=== PATIENT | male | born 1955 | race Caucasian/White ===

== ENCOUNTER 2018-01-08 18:52 | Inpatient (IN) | payer OTHER ==
[~2018-01-08] VITALS: Ht 177.8 cm; Wt 78.5 kg
[2018-01-08] MEDS ORDERED: PROAIR HFA INH8.5 GM (19:28)
[2018-01-08] MEDS ORDERED: ALBUTEROL0.63 MG/3 (19:28)
[2018-01-08] MEDS ORDERED: MONTELUKAST SOD10 MG PO (19:28)
[2018-01-08] MEDS ORDERED: TAMIFLU75 MG PO (19:28)
[2018-01-08] MEDS ORDERED: PROTONIX40 MG PO (19:28)
[2018-01-08] MEDS ORDERED: MORPHINE SULFATE 2 MG/ML SYR IV STA (19:36)
[2018-01-08] MEDS ORDERED: ONDANSETRON HCL INJ 2 MG/ML VIAL IV STA (19:36)
[2018-01-08] MEDS ORDERED: PANTOPRAZOLE 40 MG 10ML VIAL IV STA (19:36)
[2018-01-08] MEDS ORDERED: MORPHINE SULFATE 2 MG/ML SYR IV PRN (20:15)
[2018-01-08] MEDS ORDERED: IPRATROPIUM BROMIDE 0.02% 2.5 ML NEB NEB PRN (20:15)
[2018-01-08] MEDS ORDERED: ONDANSETRON HCL INJ 2 MG/ML VIAL IV PRN (20:15)
[2018-01-08] MEDS ORDERED: LEVALBUTEROL HCL SOLN NEBU 1.25 MG/3 ML NEB INH PRN (20:15)
[2018-01-08] MEDS: SODIUM CHLORIDE 0.9% 1000ML 1,000 ML IV SCH (20:45)
[2018-01-08] MEDS ORDERED: DEXTROSE 5%/0.45% SOD CHL 1,000 ML IV ONE (20:45)
[2018-01-09] VITALS (7 sets, daily range): BP systolic 113–139; BP diastolic 60–74
[2018-01-09 01:10] LABS: ALANINE AMINOTRANSFERASE 27 IU/L (0-55); ALBUMIN 3.3 g/dL (3.5-5.0); ALBUMIN/GLOBULIN RATIO 1.1 (0.8-2.0); ALKALINE PHOSPHATASE 52 IU/L (40-150); BLOOD UREA NITROGEN 10 mg/dL (7-26); BUN/CREATININE RATIO 12 (6-25); CALCIUM 8.2 mg/dL (8.4-10.2); CARBON DIOXIDE 23 mmol/L (22-29); CREATININE, SERUM 0.83 mg/dL (0.72-1.25); EST GLOMERULAR FILTRATION RATE > 60 ML/MIN (60-); GLUCOSE 104 mg/dL (74-118); LIPASE 25 U/L (8-78)
[2018-01-09 01:37] LABS: ANION GAP 12.6 mmol/L (8-16); CHLORIDE 100 mmol/L (98-107); POTASSIUM 4.6 mmol/L (3.5-5.1); SODIUM 131 mmol/L (136-145)
--- NOTE | 2018-01-09 02:22 | Diagnostic Imaging Report ---
EXAM: CT ABDOMEN/PELVIS W DATE: 01/09/2018 11:09 PM INDICATION: \S\possible esophageal mass, dysphagia - oral and IV contrast \[id number] \S\0137 \S\Y COMPARISON: None TECHNIQUE: The abdomen and pelvis were scanned using a multidetector helical scanner. Coronal and sagittal reformations were obtained. Routine protocol performed. IV Contrast: 100 ml Isovue 370 FINDINGS: LOWER THORAX: No consolidations. Nonspecific 1.4 cm low paraesophageal node. LIVER/BILIARY: No masses. No ductal dilatation. GALLBLADDER: Unremarkable SPLEEN: Unremarkable PANCREAS: Unremarkable ADRENALS: No nodules KIDNEYS: Symmetric perfusion. No enhancing masses. No hydronephrosis. GI TRACT: No wall thickening or evidence of obstruction. Diverticulosis. Appendix is visualized. VESSELS: Mild atherosclerotic changes. PERITONEUM/RETROPERITONEUM: No free air or fluid LYMPH NODES: No lymphadenopathy REPRODUCTIVE ORGANS/BLADDER: Unremarkable SOFT TISSUES: Unremarkable BONES: No suspicious bone lesions. IMPRESSION: 1. No acute abnormality. 2. Nonspecific 1.4 cm low paraesophageal node, which may be reactive. If there is concern for esophageal mass, consider nonemergent follow up esophagram or endoscopy. Signed by: Dr Xiao Pacheco MD on 01/09/2018 2:18 AM
[2018-01-09] MEDS ORDERED: DEXTROSE 5%/0.45% SOD CHL 1,000 ML IV ONE (02:45)
[2018-01-09] MEDS: SODIUM CHLORIDE 0.9% 1000ML 1,000 ML IV SCH ×2 (03:03→17:36)
[2018-01-09] MEDS ORDERED: IOPAMIDOL 370 MG/ML 200 ML INFUS..BTL INJ ONE (03:35)
[2018-01-09] MEDS ORDERED: SODIUM CHLORIDE 0.9% 50ML 50 ML ONE (03:35)
[2018-01-09 08:39] LABS: BASOPHILS % 0.4 % (0.0-1.0); EOSINOPHILS # (AUTO) 0.1 (0.0-0.4); EOSINOPHILS % 1.2 % (0.0-6.0); HEMATOCRIT 35.7 % (38.2-49.6); HEMOGLOBIN 12.3 g/dL (14.0-18.0); LYMPHOCYTES # (AUTO) 1.4 (1.0-3.2); LYMPHOCYTES % 28.7 % (18.0-39.1); MEAN CORPUSCULAR HEMOGLOBIN 29.4 pg (28-32); MEAN CORPUSCULAR HGB CONC 34.5 g/dL (31-35); MEAN CORPUSCULAR VOLUME 85.4 fL (81-99); MONOCYTES # (AUTO) 0.6 (0.2-0.8); MONOCYTES % 11.8 % (4.4-11.3); NEUTROPHILS # (AUTO) 2.8 (2.1-6.9); NEUTROPHILS % 57.7 % (38.7-80.0); PLATELET COUNT 218 x10e3/uL (140-360); RED BLOOD COUNT 4.18 x10e6/uL (4.3-5.7); RED CELL DISTRIBUTION WIDTH 12.2 % (11.7-14.4)
[2018-01-09] MEDS: MONTELUKAST SODIUM 10 MG TAB PO SCH (08:39)
[2018-01-09] MEDS ORDERED: PANTOPRAZOLE 40 MG 10ML VIAL IV SCH (09:00)
--- NOTE | 2018-01-09 09:01 | Consultation ---
DATE OF CONSULTATION: January 09, 2018 This is a 62 year old who has a history of hypertension who presented to the hospital because of abdominal pain. Mainly it is in the epigastric area along with fever. He does not have any nausea or vomiting. He does have a little bit of diarrhea. His workup so far showed that he had a ultrasound, which was essentially unremarkable. CT scan shows a 1.4 cm low paraesophageal node, which may be reactive and otherwise is unremarkable. His labs at the ER shows normal CBC, as well as CMP. His other medical problems are significant for history of hypertension. ALLERGIES: NONE. SOCIAL HISTORY: There is no alcohol use. FAMILY HISTORY: Noncontributory. REVIEW OF SYSTEMS: Denies any chest pain. At this point, denies any shortness of breath. Denies any dysphagia or odynophagia. There is no dysuria, hematuria or any kind of syncopal episode. PHYSICAL EXAMINATION GENERAL: Awake, alert and appears to be stable. VITAL SIGNS: Afebrile. HEENT: Normocephalic and atraumatic. Sclerae are anicteric. NECK: Supple. HEART: Sounds are regular. LUNGS: Clear. ABDOMEN: Soft. There is no tenderness at this point. There is no rebound or mass. EXTREMITIES: Shows no clubbing. LAB VALUES: This morning sodium 131. Liver enzymes again are normal. IMPRESSION 1. Abdominal pain: So far, workup is unremarkable. Possibility of peptic ulcer disease. 2. Hypertension. RECOMMENDATIONS: Keep n.p.o. for now. Will proceed with EGD for further evaluation today. Follow labs. Job#: [id number] RI cc:DO DORA TREVINO MD
[2018-01-09] MEDS ORDERED: SIMETHICONE 40 MG/0.6 ML BTL ONE (09:14)
--- NOTE | 2018-01-09 09:48 | Operative Report ---
DATE OF PROCEDURE: January 09, 2018 PROCEDURE: Upper endoscopy. ANESTHESIA: IV general. PREOPERATIVE DIAGNOSIS: Abdominal pain and fever. POSTOPERATIVE DIAGNOSES 1. Esophageal ulcer. 2. Esophagitis. 3. Hiatal hernia. 4. Gastritis. PROCEDURE IN DETAIL: Discussed with the patient prior to the procedure. The patient understands the risk of bleeding, infection, and perforation, as well as medication reaction. The patient was secured. After the patient was resting comfortably, an Olympus gastroscope was introduced into the mouth and into the stomach, and the esophagus showed evidence of esophagitis. The stomach and the showed evidence of hiatal hernia, as well as gastritis. Multiple biopsies were taken from the stomach, as well as the esophagus. The duodenum appeared to be normal. The patient is without any problems. Recommendation is follow up pathology results. Will add Carafate along with PPI for now. Job#: [id number] RI cc:DO DORA ALBA MD
[2018-01-09] MEDS: ALBUTEROL SULF 0.083% NEB SOLN 3 ML NEB NEB SCH ×2 (12:00→20:45)
[2018-01-09] MEDS: SUCRALFATE 1 GM TAB PO SCH ×3 (12:41→21:21)
[2018-01-09] MEDS ORDERED: LIDOCAINE VISC 2% SOLN 15 ML UDC PO ONE (16:30)
--- NOTE | 2018-01-09 16:33 | History and Physical ---
PRIMARY CARE PROVIDER: Dr. Jeff Allen. CHIEF COMPLAINT: Dysphagia and weight loss. HISTORY OF PRESENT ILLNESS: Mr. Garcia is a 62-year-old gentleman who complains of painful swallowing and dysphagia for the last couple of weeks. The patient does have a history of acid reflux and has been started on a stronger medicine by his PCP with no relief. REVIEW OF SYSTEMS: He denies fevers or chills. He has had some subjective weight loss over the last couple of weeks. He denies sinus congestion. He has fever blisters on his lower lip. He denies sore throat. He denies chest pain or palpitations. Denies shortness of breath, wheezing or cough. Does have a history of asthma. He is having dysphagia, painful swallowing and difficulty swallowing, but no nausea or vomiting. Some epigastric discomfort. No diarrhea or melena. He denies dysuria or flank pain. Denies rash or pruritus. Denies bleeding or bruising. Denies joint pain or swelling. Denies headache, vertigo or loss of consciousness. Denies depression, agitation, homicidal or suicidal ideation. PAST MEDICAL HISTORY: Significant for hypertension and asthma. MEDICATIONS: Albuterol inhaler and nebulizer treatments. Protonix 40 mg twice a day before meals and Singulair 10 mg daily. PAST SURGICAL HISTORY: He also has a history of minor surgery on a finger and on his foot. ALLERGIES: NO KNOWN DRUG ALLERGIES. FAMILY HISTORY: Remarkable for hypertension. SOCIAL HISTORY: The patient is . [place]ian is his primary language. He does smoke, drink or use illegal drugs. He is generally independently functioning. PHYSICAL EXAM: PSYCHIATRIC: He is alert and oriented times 3 with normal mood and affect. CONSTITUTIONAL: He has a normal body habitus. Is in no acute distress. VITAL SIGNS: Blood pressure 117/60. Pulse 60 and regular. Respiratory rate 20. O2 sat 97%. Temperature 97.9. HEENT: Head is atraumatic. His eyes are anicteric with clear conjunctivae. Ears nares are without erythema or discharge. Oropharynx is clear. NECK: Is supple with no mass or thyromegaly. LYMPHATIC SYSTEM: He has no palpable cervical, axillary or inguinal adenopathy. CARDIOVASCULAR: His heart has a regular rate and rhythm without murmur or extra heart sounds. He has no carotid bruit. Has no peripheral edema. Weak dorsal pedal pulses. RESPIRATORY: Clear to auscultation and percussion with normal respiratory effort. GASTROINTESTINAL: Abdomen is soft without organomegaly, masses or tenderness. Normal bowel sounds present. CUTANEOUS: His skin is warm and dry to touch with no rash or skin breakdown. MUSCULOSKELETAL: Joints are in normal alignment without erythema or swelling. Has no calf tenderness. NEUROLOGIC: Exam is nonfocal with intact cranial nerves and no motor or sensory deficits. DIAGNOSTIC STUDIES: CT scan of the abdomen shows no acute disease. Does show 1.4 cm low paraesophageal lymph node that appears reactive. He is status post upper endoscopy done by the GI service that showed reflux esophagitis and some unusual looking ulcerations that had a herpetic appearance. CBC shows a white count of 4.85 with a normal differential. Hemoglobin 12.3, hematocrit 35.7, platelet count 218,000. His chemistry shows normal electrolytes. CO2 23. Creatinine 0.83. BUN 10 for normal GFR. Calcium 8.2. Glucose 104. Amylase 25. Lipase 24. Transaminases, bilirubin and alkaline phos all normal. IMPRESSION AND PLAN 1. Dysphagia. GI has been consulted. He is status post EGD that showed GERD and some unusual ulcerations, possibly hepatic in nature. The patient was initially started on IV Protonix which was then switched to p.o. Protonix twice a day before meals with Carafate 1 gram before meals, added by GI. Will also add viscous lidocaine for the discomfort and Acyclovir for possible herpetic lesions. 2. Hypertension. The patient is normotensive at present. Will monitor and hold his medications. 3. Asthma. He is currently asymptomatic. Will use as needed nebulizer treatments. 4. For prophylaxis the patient is on SCDs for DVT prophylaxis and Protonix for GI prophylaxis. Job#: [id number]
[2018-01-09] MEDS ORDERED: PROPOFOL IV EMULSION 10 MG/ML 20 ML VIAL ONE (17:28)
[2018-01-09] MEDS: ACYCLOVIR 200 MG CAP PO SCH ×2 (17:36→18:00)
[2018-01-09] MEDS: PANTOPRAZOLE SOD 40 MG TABEC PO SCH (17:36)
[2018-01-09] MEDS ORDERED: FENTANYL CITRATE/PF 100MCG/2 ML INJ ONE (18:14)
[2018-01-09] MEDS ORDERED: MIDAZOLAM HCL 2 MG/2 ML VIAL ONE (18:14)
[2018-01-10] VITALS: BP 128/64
[2018-01-10] MEDS: ACYCLOVIR 200 MG CAP PO SCH ×3 (00:50→12:06)
[2018-01-10 01:33] VITALS: BP 119/60
[2018-01-10] MEDS: SODIUM CHLORIDE 0.9% 1000ML 1,000 ML IV SCH ×2 (02:00→11:45)
[2018-01-10 04:00] VITALS: BP 143/65
[2018-01-10] MEDS: ALBUTEROL SULF 0.083% NEB SOLN 3 ML NEB NEB SCH ×2 (06:45→12:55)
[2018-01-10 07:04] LABS: BASOPHILS % 0.4 % (0.0-1.0); EOSINOPHILS # (AUTO) 0.1 (0.0-0.4); EOSINOPHILS % 2.2 % (0.0-6.0); HEMATOCRIT 35.9 % (38.2-49.6); HEMOGLOBIN 12.5 g/dL (14.0-18.0); LYMPHOCYTES # (AUTO) 1.5 (1.0-3.2); MEAN CORPUSCULAR HGB CONC 34.8 g/dL (31-35); MEAN CORPUSCULAR VOLUME 86.1 fL (81-99); MONOCYTES # (AUTO) 0.6 (0.2-0.8); MONOCYTES % 10.3 % (4.4-11.3); NEUTROPHILS # (AUTO) 3.2 (2.1-6.9); NEUTROPHILS % 58.5 % (38.7-80.0); PLATELET COUNT 250 x10e3/uL (140-360); RED BLOOD COUNT 4.17 x10e6/uL (4.3-5.7); RED CELL DISTRIBUTION WIDTH 12.3 % (11.7-14.4)
[2018-01-10] MEDS ORDERED: PANTOPRAZOLE SOD 40 MG TABEC PO SCH (07:30)
[2018-01-10 07:36] LABS: ANION GAP 10.4 mmol/L (8-16); BLOOD UREA NITROGEN 6 mg/dL (7-26); BUN/CREATININE RATIO 8 (6-25); CALCIUM 8.5 mg/dL (8.4-10.2); CARBON DIOXIDE 29 mmol/L (22-29); CHLORIDE 106 mmol/L (98-107); CREATININE, SERUM 0.78 mg/dL (0.72-1.25); EST GLOMERULAR FILTRATION RATE > 60 ML/MIN (60-); GLUCOSE 105 mg/dL (74-118); POTASSIUM 4.4 mmol/L (3.5-5.1); SODIUM 141 mmol/L (136-145)
[2018-01-10 07:39] LABS: THYROID STIMULATING HORMONE 0.477 uIU/mL (0.350-4.940)
[2018-01-10 07:45] VITALS: BP 134/70
[2018-01-10 08:00] VITALS: BP 134/70
[2018-01-10] MEDS: MONTELUKAST SODIUM 10 MG TAB PO SCH (08:21)
[2018-01-10] MEDS: PANTOPRAZOLE SOD 40 MG TABEC PO SCH (08:21)
[2018-01-10] MEDS: SUCRALFATE 1 GM TAB PO SCH ×2 (08:21→12:06)
[2018-01-10 09:53] LABS: EOSINOPHILS % (MANUAL) 5 % (0-7); LYMPHOCYTES % (MANUAL) 35 % (19-48); MONOCYTES % (MANUAL) 3 % (3.4-9.0); NEUTROPHILS % (MANUAL) 53 % (40-74)
[2018-01-10 09:54] LABS: ANISOCYTOSIS SLIGHT; HYPOCHROMASIA SLIGHT; PLATELET MORPHOLOGY COMMENT NORMAL; POIKILOCYTOSIS SLIGHT; RBC MORPHOLOGY COMMENT NORMAL
[2018-01-10 16:00] VITALS: BP 135/65
[2018-01-10] MEDS ORDERED: CARAFATE1 GM PO (17:10)
[2018-01-10] MEDS ORDERED: ACYCLOVIR200 MG PO (17:10)
--- NOTE | 2018-01-11 07:07 | Discharge Summary ---
PCP: Dr. Jeff Allen CONSULTING PHYSICIAN: Dr. Henry with gastroenterology. PERTINENT HISTORY AND PHYSICAL FINDINGS: Chief complaint was dysphagia and weight loss. Mr. Garcia is a 62-year-old gentleman who complained of painful swallowing and dysphagia for 2 weeks prior to admission to [facility]. The patient does have a history of acid reflux, and has been started on a stronger medicine by his PCP with no relief. His review of systems did include dysphagia, painful swallowing, difficulty swallowing without nausea or vomiting. Some epigastric discomfort. No diarrhea or melena. No dysuria or flank pain. PAST MEDICAL HISTORY: Significant for hypertension and asthma. ALLERGIES: NO KNOWN ALLERGIES. ADMITTING DIAGNOSES 1. Dysphagia. 2. Hypertension. 3. Asthma. DISCHARGE DIAGNOSES 1. Dysphagia with painful swallowing. 2. Gastroesophageal reflux disease and unusual ulcerations. 3. Hypertension. 4. Asthma. Dr. Henry completed an EGD, which had shown gastroesophageal reflux disease, some unusual ulcerations, possibly hepatic in nature. The patient was started initially on IV Protonix and then switched to p.o. Protonix b.i.d. before meals with Carafate 1 g before meals was added by Dr. Henry. Viscus lidocaine was added for discomfort and acyclovir for possible herpetic lesions. Dr. Henry saw the patient today, and stated that it was okay for him to go home. Follow up with Dr. Henry in 2-3 weeks. Repeat EGD in 3 months. Per the patient, he will receive results of the biopsy in about 2 weeks. Prescriptions for Protonix and Carafate have been left on the chart by Dr. Henry. On admission, CT scan of the abdomen showed no acute disease. It showed a 1.4 cm low paraesophageal lymph node that appeared reactive. CBC showed a white blood cell count of 4.85 with a normal differential. Hemoglobin 12.3, hematocrit 35.7, and platelets 218,000. Chemistry showed normal electrolytes. CO2 23, creatinine 0.53, BUN 10 for a normal GFR. Calcium 8.2. Amylase 25, glucose 104, lipase 24. Transaminases, bilirubin and alkaline phosphatase were all normal. Today, WBC is 5.42, hemoglobin 12.5, hematocrit 35.9, and platelets 250,000. Sodium 141, potassium 4.4, chloride 106, CO2 29, anion gap 10.4, creatinine 0.78, BUN 6 for a normal GFR greater than 60. Glucose 105. Calcium 8.5. Thyroid stimulating hormone 0.477. The patient has continued on GI soft diet. ACTIVITY LEVEL: As tolerated. FOLLOWUP: With PCP in 1-2 weeks. Follow up with GI as aforementioned. DICTATED BY FROY GALICIA, MARVIN DORA MEHTA MD Job#: [id number] JASPER
== END 2018-01-10 17:28 | disposition home or self-care (01) | DRG 382 ==
LOC: FSED 18:52 → MED/SURG 01-09 00:03
PROVIDERS: ADMIT Internal Medicine; ATTEND Internal Medicine
PROC: 0DB58ZX Excision of Esophagus, Via Natural or Artificial Opening Endoscopic, Diagnostic (ICD-10-PCS; 2018-01-09)
PROC: 0DB78ZX Excision of Stomach, Pylorus, Via Natural or Artificial Opening Endoscopic, Diagnostic (ICD-10-PCS; principal; 2018-01-09 13:00)
DX: K22.10 Ulcer of esophagus without bleeding (principal); B00.9 Herpesviral infection, unspecified; I10 Essential (primary) hypertension; R13.10 Dysphagia, unspecified; J45.909 Unspecified asthma, uncomplicated; R19.7 Diarrhea, unspecified; R10.9 Unspecified abdominal pain; K21.0 Gastro-esophageal reflux disease with esophagitis; K44.9 Diaphragmatic hernia without obstruction or gangrene; K29.70 Gastritis, unspecified, without bleeding
CPT/HCPCS: 36415; 43239; 74177; 80048; 80053; 83690; 84443; 85025; 88305; 88312; 88342; 94640; 99284; J2250; J2270; J2405; J7030; Q9967